=== PATIENT | male | born 1990 | race Hispanic/Latino ===

== ENCOUNTER 2021-06-13 09:03 | Emergency (ER) | payer SELFPAY ==
[~2021-06-13 09:03] MED LIST: CEPHALEXIN500 MG PO; CORTISPORIN OTI10 ML AU; NO MEDS; PEPCID20 MG OR
== END 2021-06-13 11:07 | disposition left against medical advice (07) | DRG 951 ==
LOC: ED 09:03 → LWOBS 10:39
DX: Z53.21 Procedure and treatment not carried out due to patient leaving prior to being seen by health care provider (principal)

== ENCOUNTER 2021-06-15 16:18 | Emergency (ER) | payer OTHER ==
[~2021-06-15] VITALS: Ht 172.7 cm; Wt 109.0 kg
[2021-06-15 17:00] LABS: HEMATOCRIT 39.6 % (39.0-50.0); IMMATURE GRANULOCYTES 0.2 % (0.0-5.0); MEAN CORPUSCULAR HGB CONC 32.6 g/dL CAL (32.0-36.0); NEUT# 2.99 thou/uL (1.82-7.42); RED BLOOD COUNT 4.16 mill/uL (4.70-6.10); RED CELL DISTRI WIDTH 12.6 % (11.5-15.5)
[2021-06-15 17:01] LABS: HEMOGLOBIN 12.9 g/dl (14.0-18.0); MEAN CELL VOLUME 95.2 fL CALC (80.0-100.0)
[2021-06-15 17:15] LABS: ALBUMIN 3.7 g/dL (3.2-5.0); ALKALINE PHOSPHATASE 55 u/l (38-126); ANION GAP 10 (6-22 (CALC)); BUN 12 mg/dL (9-20); BUN/CREATININE RATIO 15 (12-20 (CALC)); C-REACTIVE PROTEIN 5.9 mg/dL (0-0.9); CARBON DIOXIDE 30 mmol/l (22-30); CHLORIDE 103 mmol/l (95-108); CREATININE 0.8 mg/dL (0.7-1.3); GFR > 60 ML/MIN (>=60 (CALC)); GFR FOR AFR.AMER. > 60 ML/MIN (>=60 (CALC)); LIPASE 58 u/l (23-300); POTASSIUM 3.8 mmol/l (3.5-5.1); SODIUM 139 mmol/l (137-146); TOTAL PROTEIN 7.1 g/dL (6.3-8.2)
[2021-06-15 17:16] LABS: BILIRUBIN, TOTAL 0.1 mg/dL (0.0-1.4); SGOT/AST 41 u/l (17-59)
[2021-06-15] MEDS ORDERED: MEDDOSEPAK PO (20:44)
[2021-06-15] MEDS ORDERED: ZITHROMAX250 MG PO (20:44)
[2021-06-15 20:50] VITALS: BP 139/80
== END 2021-06-15 20:53 | disposition home or self-care (01) | DRG 177 ==
LOC: ED 16:18
PROVIDERS: Family Medicine
DX: U07.1 COVID-19 (principal); J12.82 Pneumonia due to coronavirus disease 2019
CPT/HCPCS: Q9967

== ENCOUNTER 2023-11-05 07:37 | Emergency (ER) | payer OTHER ==
[~2023-11-05] VITALS: Ht 172.7 cm; Wt 106.6 kg
[~2023-11-05 07:37] MED LIST changes: +MEDDOSEPAK PO; +ZITHROMAX250 MG PO
[2023-11-05 07:47] VITALS: BP 143/83
[2023-11-05 08:00] VITALS: BP 139/98
[2023-11-05 08:06] LABS: BASO% 0.4 % (0-3); EOS% 1.9 % (0-8); HEMATOCRIT 42.6 % (39.0-50.0); HEMOGLOBIN 14.6 g/dl (14.0-18.0); IMMATURE GRANULOCYTES 0.3 % (0.0-5.0); LYMPH% 26.4 % (15-41); MEAN CELL VOLUME 92.6 fL CALC (80.0-100.0); MEAN CORPUSCULAR HGB 31.7 pG CALC (26.0-32.0); MEAN CORPUSCULAR HGB CONC 34.3 g/dL CAL (32.0-36.0); MONO% 6.5 % (2-13); NEUT# 4.67 thou/uL (1.82-7.42); NEUT% 64.5 % (42-76); RED BLOOD COUNT 4.6 mill/uL (4.70-6.10)
[2023-11-05 08:27] VITALS: BP 141/90
[2023-11-05 08:30] VITALS: BP 140/85
[2023-11-05 08:35] LABS: ALKALINE PHOSPHATASE 75 u/l (38-126); ANION GAP 12 (6-22 (CALC)); BUN 19 mg/dL (9-20); BUN/CREATININE RATIO 23 (12-20 (CALC)); CARBON DIOXIDE 25 mmol/l (22-30); CHLORIDE 106 mmol/l (95-108); CREATININE 0.8 mg/dL (0.7-1.3); GFR FOR AFR.AMER. > 60 ML/MIN (>=60 (CALC)); GFR OTHER RACES > 60 ML/MIN (>=60 (CALC)); POTASSIUM 3.9 mmol/l (3.5-5.1); SGOT/AST 30 u/l (17-59); SODIUM 139 mmol/l (137-146); TOTAL PROTEIN 7.4 g/dL (6.3-8.2)
[2023-11-05 08:39] LABS: ALBUMIN 4.5 g/dL (3.2-5.0); BILIRUBIN, TOTAL 0.3 mg/dL (0.2-1.3)
[2023-11-05] MEDS ORDERED: NAPROXEN500 MG PO (08:54)
[2023-11-05] MEDS ORDERED: CEPHALEXIN500 MG PO (08:58)
[2023-11-05 09:01] VITALS: BP 133/84
[2023-11-05 09:09] VITALS: BP 133/84
== END 2023-11-05 09:23 | disposition home or self-care (01) | DRG 605 ==
LOC: ED 07:37
PROVIDERS: Family Medicine
DX: S50.811A Abrasion of right forearm, initial encounter (principal); V54.5XXA Driver of pick-up truck or van injured in collision with heavy transport vehicle or bus in traffic accident, initial encounter